=== PATIENT | female | born 1955 | race Caucasian/White ===

== ENCOUNTER → 2017-03-20 | Outpatient (CLI) | payer BC, OTHER ==
[~2017-03-20] MED LIST: ESCI5TAB7 PO
== END ==
LOC: STAR 12:07
PROVIDERS: ATTEND Orthopaedic Surgery
DX: Z02.9 Encounter for administrative examinations, unspecified (principal)

== ENCOUNTER 2017-03-25 11:30 | Day surgery (SDC) | payer BC, OTHER ==
[~2017-03-25] VITALS: Ht 142.2 cm; Wt 39.5 kg
[~2017-03-25 11:30] MED LIST changes: +KETAMINE 10 MG/ML, 20ML ONE; +LIDOCAINE 0.5%-EPI 1:200K, 50ML ONE; +ROPIvacaine/PF 0.5%, 30 ML ONE
[2017-03-25] MEDS ORDERED: MIDAZOLAM 1 MG/ML, 2ML ONE (11:40)
[2017-03-25] MEDS ORDERED: FENTANYL PF 100 MCG/2ML ONE ×2 (11:40→13:51)
[2017-03-25] MEDS ORDERED: LACTATED RINGERS 1,000 ML IV SCH (11:52)
[2017-03-25 11:55] VITALS: BP 133/81
[2017-03-25] MEDS ORDERED: CEFAZOLIN 1,000 MG ONE (12:48)
[2017-03-25] MEDS ORDERED: ONDANSETRON 2MG/ML, 2ML ONE (12:48)
[2017-03-25] MEDS ORDERED: PROPOFOL 10 MG/ML, 20ML ONE (12:48)
[2017-03-25] MEDS ORDERED: GLYCOPYRROLATE 0.2MG/1ML ONE (12:48)
[2017-03-25] MEDS ORDERED: DEXAMETHASONE 4 MG/ML, 1ML ONE (12:48)
[2017-03-25] MEDS ORDERED: OXYcodone 5 MG/5 ML ORAL.SOL UDC ONE (13:51)
[2017-03-25] MEDS ORDERED: ACETAMINOPHEN 650 MG/20.3 ML UDC ONE (13:51)
[2017-03-25] MEDS: FENTANYL PF 100 MCG/2ML IV PRN ×2 (13:53→13:59)
[2017-03-25] MEDS ORDERED: KETOROLAC 30 MG/1 ML IV PRN (14:00)
[2017-03-25] MEDS ORDERED: ACETAMINOPHEN 325 MG TABLET PO PRN (14:00)
[2017-03-25] MEDS ORDERED: PROMETHAZINE 25 MG/ML, 1ML IV PRN (14:00)
[2017-03-25] MEDS ORDERED: OXYcodone 5 MG/5 ML ORAL.SOL UDC PO PRN (14:00)
[2017-03-25] MEDS ORDERED: MEPERIDINE/PF 25MG/0.5ML IVPush PRN (14:00)
[2017-03-25] MEDS ORDERED: HYDROmorphone 2 MG/ML, 1ML ONE (14:10)
[2017-03-25] MEDS: HYDROmorphone 1 MG/ML, 1ML IV PRN ×2 (14:12→14:22)
[2017-03-25] MEDS ORDERED: KETOROLAC 30 MG/1 ML ONE (14:14)
[2017-03-25] MEDS ORDERED: MEPERIDINE/PF 25MG/0.5ML ONE (14:28)
== END 2017-03-25 16:35 ==
LOC: OUT 11:30
PROVIDERS: ATTEND Orthopaedic Surgery
DX: S83.282A Other tear of lateral meniscus, current injury, left knee, initial encounter (principal); S83.242A Other tear of medial meniscus, current injury, left knee, initial encounter; M65.862 Other synovitis and tenosynovitis, left lower leg; M94.262 Chondromalacia, left knee; F41.9 Anxiety disorder, unspecified; X58.XXXA Exposure to other specified factors, initial encounter; Y93.9 Activity, unspecified; Y92.9 Unspecified place or not applicable; Y99.9 Unspecified external cause status; Z88.6 Allergy status to analgesic agent
CPT/HCPCS: 29880; J0690; J1100; J1170; J1885; J2175; J2250; J2405; J2704; J2795; J3010; J7120; J3490